=== PATIENT | male | born 1960 | race Caucasian/White ===

== ENCOUNTER 2025-05-09 06:36 | Inpatient (IN) | payer MEDICARE ==
[2025-05-09] MEDS ORDERED: ANESTHESIA TRAY IN PYXIS 1 EA TRAY MC ONE (06:42)
[2025-05-09] MEDS ORDERED: MIDAZOLAM HCL 2 MG/2ML VIAL ONE (07:18)
[2025-05-09] MEDS ORDERED: OXYMETAZOLINE HCL NASAL SPRAY 30 ML BOTTLE NS ONE (07:18)
[2025-05-09] MEDS ORDERED: FENTANYL PF 100MCG/2ML AMPUL ONE (07:18)
[2025-05-09] MEDS ORDERED: SUGAMMADEX SODIUM 200 MG/2 ML VIAL IV ONE (07:18)
[2025-05-09] MEDS ORDERED: LIDOCAINE 2% JEL UROJET 10 ML MM ONE (07:18)
[2025-05-09] MEDS ORDERED: ROCURONIUM BROMIDE 50 MG/5 ML ONE (07:18)
[2025-05-09] MEDS ORDERED: GENTAMICIN 80 MG/2 ML VIAL ONE (07:39)
[2025-05-09] MEDS ORDERED: POLYMYXIN B SULFATE 500,000 UNITS ONE (07:39)
[2025-05-09] MEDS ORDERED: VANCOMYCIN 1 GM VIAL ONE (07:40)
[2025-05-09] MEDS ORDERED: CEFAZOLIN 1 GM ONE (07:40)
[2025-05-09] MEDS ORDERED: dexaMETHasone SOD PHOSPHATE 2 ML ONE (07:40)
[2025-05-09 08:01] LABS: PLATELET COUNT (AUTO) 121 K/uL (150-450); RED BLOOD CELL COUNT(AUTO) 3.75 MIL/uL (4.5-6.0); RED CELL DISTRIBUTION WIDTH 14.1 % (11.5-15.0); WHITE BLOOD COUNT (AUTO) 4.8 K/uL (4.3-11.0)
[2025-05-09] MEDS ORDERED: BUPIVACAINE 0.5 % PF 150 MG/30 ML VIAL ONE (08:20)
[2025-05-09] MEDS ORDERED: LIDOCAINE 2%-EPI 1:100,000 30 ML VIAL ONE (08:20)
[2025-05-09 12:55] VITALS: BP 115/77; TEMP 97.3; O2SAT 99
[2025-05-09 13:00] VITALS: BP 113/74; TEMP 97.9; O2SAT 100
[2025-05-09] MEDS ORDERED: HYDROMORPHONE 1 MG/1 ML DISP.SYRIN IV PRN (13:00)
[2025-05-09] MEDS ORDERED: ONDANSETRON HCL/PF 4 MG/2 ML VIAL IVP PRN ×2 (13:00→14:00)
[2025-05-09] MEDS ORDERED: ACETAMINOPHEN 325 MG TABLET PO PRN ×2 (13:00→14:00)
[2025-05-09] MEDS: ZOSYN IVPB 3.375 G in IV D5W 50ml IV SCH (13:16)
[2025-05-09] MEDS: IV NS 0.9% 1,000 ML IV PRN (13:16)
[2025-05-09] MEDS ORDERED: ZOLPIDEM TARTRATE 5 MG TABLET PO PRN (14:00)
[2025-05-09] MEDS ORDERED: MAG HYDROX/AL HYDROX/SIMETH 30 ML UDC PO PRN (14:00)
[2025-05-09] MEDS ORDERED: Z GUARD REMEDY 4 OZ OINT TP PRN (14:00)
[2025-05-09] MEDS ORDERED: MAGNESIUM HYDROXIDE 30 ML UDC PO PRN (14:00)
[2025-05-09] MEDS: PANTOPRAZOLE 40 MG TABLET.DR PO SCH (15:10)
[2025-05-09 16:00] VITALS: BP 110/67; TEMP 97.9; O2SAT 98
[2025-05-09] MEDS: VANCOMYCIN 1 GM in IV D5W 250ml IV SCH (19:57)
[2025-05-09 20:00] VITALS: BP 118/84; TEMP 97.5; O2SAT 99
[2025-05-10 06:27] LABS: PLATELET COUNT (AUTO) 102 K/uL (150-450); RED BLOOD CELL COUNT(AUTO) 3.24 MIL/uL (4.5-6.0); RED CELL DISTRIBUTION WIDTH 14.0 % (11.5-15.0); WHITE BLOOD COUNT (AUTO) 10.1 K/uL (4.3-11.0)
[2025-05-10 06:37] LABS: CALCIUM, SERUM 9.0 mg/dL (8.5-10.1); CREATININE 1.5 mg/dL (0.6-1.3); PHOSPHORUS 4.0 mg/dL (2.5-4.9); SODIUM SERUM 137.0 mmol/L (136-145); UREA NITROGEN, BLOOD 33.0 mg/dL (7-18)
== END 2025-05-10 13:53 | disposition home or self-care (01) | DRG 141 ==
LOC: DS 06:36 → MED 12:47
PROVIDERS: ADMIT Nurse Practitioner Acute Care; ATTEND Nurse Practitioner Acute Care
PROC: 0NUV07Z Supplement Left Mandible with Autologous Tissue Substitute, Open Approach (ICD-10-PCS; 2025-05-09)
PROC: 0NUR07Z Supplement Maxilla with Autologous Tissue Substitute, Open Approach (ICD-10-PCS; 2025-05-09)
PROC: 0N5R0ZZ Destruction of Maxilla, Open Approach (ICD-10-PCS; 2025-05-09)
PROC: 0N5V0ZZ Destruction of Left Mandible, Open Approach (ICD-10-PCS; 2025-05-09)
PROC: 09UR07Z Supplement Left Maxillary Sinus with Autologous Tissue Substitute, Open Approach (ICD-10-PCS; 2025-05-09)
PROC: 09UQ07Z Supplement Right Maxillary Sinus with Autologous Tissue Substitute, Open Approach (ICD-10-PCS; 2025-05-09)
PROC: 0NST0ZZ Reposition Right Mandible, Open Approach (ICD-10-PCS; 2025-05-09)
PROC: 0NSR04Z Reposition Maxilla with Internal Fixation Device, Open Approach (ICD-10-PCS; principal; 2025-05-09 07:30)
DX: S02.40DA Maxillary fracture, left side, initial encounter for closed fracture (principal); N17.9 Acute kidney failure, unspecified; M27.2 Inflammatory conditions of jaws; S02.40CA Maxillary fracture, right side, initial encounter for closed fracture; S02.609A Fracture of mandible, unspecified, initial encounter for closed fracture; E78.5 Hyperlipidemia, unspecified; D53.9 Nutritional anemia, unspecified; M89.8X9 Other specified disorders of bone, unspecified site; F17.210 Nicotine dependence, cigarettes, uncomplicated; N40.0 Benign prostatic hyperplasia without lower urinary tract symptoms; Z90.3 Acquired absence of stomach [part of]; I12.9 Hypertensive chronic kidney disease with stage 1 through stage 4 chronic kidney disease, or unspecified chronic kidney disease; N18.9 Chronic kidney disease, unspecified; X58.XXXA Exposure to other specified factors, initial encounter; Y92.9 Unspecified place or not applicable; D16.4 Benign neoplasm of bones of skull and face; D16.5 Benign neoplasm of lower jaw bone; M60.9 Myositis, unspecified; M85.60 Other cyst of bone, unspecified site
CPT/HCPCS: 36415; 71045-TC; 80048-TC; 83735-TC; 84100-TC; 85025-TC; A4223; A4338; C1713; G0378; J0690; J1100; J1171; J1580; J1885; J2250; J2405; J2543; J2704; J3010; J3373; J3490; J7030; J7060